=== PATIENT | female | born 1940 | race Caucasian/White ===

== ENCOUNTER 2023-08-17 07:50 | Emergency (ER) | payer MEDICARE, SELFPAY ==
[2023-08-17 07:55] VITALS: BP 110/60; PULSE 60; O2SAT 94
[2023-08-17 08:05] VITALS: BP 144/81; PULSE 67; RESP 18; TEMP 37.1; O2SAT 98; BMI 25.7
[2023-08-17 08:19] VITALS: BP 144/81; PULSE 67; RESP 18; TEMP 37.1; O2SAT 98
--- NOTE | 2023-08-17 08:37 | ED.FALL ---
HPI - Fall General Chief Complaint: Fall Stated Complaint: UNWITT FALL FROM DEMENTIA UNIT PER EMS Time Seen by Provider: 08/17/23 08:13 Source: patient and family Mode of arrival: EMS History of Present Illness HPI Narrative: 82-year-old female, currently on Eliquis for atrial fibrillation, she is on a memory care unit and this is the 2nd fall within a week. Patient states that she was attempting to get up to the bathroom and slid out of bed, she denies any head strike and states that she was reaching for her walker but missed it. Related Data Previous Rx's Medication Instructions Recorded cefdinir 300 mg capsule 300 mg PO BID 5 days #10 caps 08/17/23 Allergies Allergy/AdvReac Type Severity Reaction Status Date / Time amoxicillin [AMOXICILLIN] Allergy Unknown UNKNOWN Unverified 04/29/20 14:43 Review of Systems Review of Systems: Pertinent positives and negatives as stated in HPI [facility] Past Medical History Source: nursing notes reviewed Onset Date is defined in the Problem List Problems that require an onset date and time if occurred within 24 hrs of arrival to the ED Aortic Dissection and Rupture; Neurologic impairment; Cardiopulmonary Arrest; Endotracheal Intubation; Insertion or Replacement of Mechanical Circulatory Assist Device Social History Social History Advance Directives: Yes Advance Directives on File: Yes Advance Directives Date on File: 08/17/23 Physical Exam Vital Signs: Vital Signs: Last Vital Signs Temp 98.7 F 08/17/23 08:19 Pulse 67 08/17/23 08:19 Resp 18 08/17/23 08:19 BP 144/81 H 08/17/23 08:19 Pulse Ox 98 08/17/23 08:19 O2 Del Method Room Air 08/17/23 08:19 BMI result Body Mass Index 25.7 VITAL SIGNS: Reviewed. GENERAL: Well developed, well nourished, in no acute distress. HEAD: Normocephalic/atraumatic, EYES: PERRLA, EOMI EARS: Ext canals without abnormality NOSE: Nares patent bilateral OROPHARYNX: no oral lesions noted, posterior pharynx clear NECK: C-collar in place, no midline cervical spine tenderness to palpation or step-offs. LUNGS: Normal breath sounds. No adventitious sounds or accessory muscle use. SpO2<98> CARDIOVASCULAR: Regular rate and rhythm without noted murmurs ABDOMEN: Soft, non-tender, non-distended with bowel sounds. PELVIS: Stable, nontender MUSCULOSKELETAL: No tenderness, deformities, or effusions noted on gross inspection. EXTREMITIES: No cyanosis, clubbing or edema. SKIN: Inspection of the skin reveals no rashes NEUROLOGIC: Alert and oriented x 2. Strength and sensation to light touch were grossly intact x 4. Medical Decision Making Medical Decision Making [facility] Narrative: 82-year-old female with history and clinical presentation consistent with fall on Eliquis, will evaluate for cardiac arrhythmia or urinary tract infection given 2nd fall within a week. I reviewed all investigations and CT scan of the head does not demonstrate any intracranial hemorrhage or mass effect, cervical spine does not demonstrate any fracture or subluxation and C-collar was removed. EKG only consistent with known atrial fibrillation that is rate controlled but on evaluation of urinalysis patient is noted to have urinary tract infection and will be discharged back to the memory care unit with a prescription for antibiotics. Differential Diagnosis Differential Diagnoses: The differential diagnosis associated with the presentation includes Please see the discussion above Admission/Observation Please see the discussion above Lab Data [facility] Lab Attestation statement: I reviewed the patient's lab results. Please see the discussion above Labs: Lab Results 08/17/23 Range/Units 10:36 Urine Color Yellow Urine Appearance Clear Urine pH 6.5 (5.0-9.0) Ur Specific T[place] 1.015 (1.005-1.025) Urine Protein Negative (Neg-Trace) mg/dL Urine Glucose (UA) Negative (Negative) mg/dL Urine Ketones Negative (Negative) mg/dL Urine Blood Negative (Negative) Urine Nitrite Negative (Negative) Ur Leukocyte Esterase Moderate (2+) H (Negative) Urine RBC 0-2 (0-2) /HPF Urine WBC 21-50 H (0-5) /HPF Ur Squamous Epith Cells 0-2 (0-2) /HPF Urine Bacteria None Seen (None Seen) Hyaline Casts 0-2 (0-2) /LPF Independent Interpretation I performed an independent interpretation of an: EKG Interpretation: Rate controlled atrial fibrillation, HR-70, no STEMI, QRS/QTC is within normal limits. Radiology Impression Discussion of test interpretation with radiology: I have reviewed the radiologist's reading. Radiologist Impression: Please see the discussion above External Record Review External record reviewed: Outpatient record, Prior outpatient labs and Prior outpatient radiology Chronic Conditions Patient?s care impacted by: Other Dementia, atrial fibrillation, chronic anticoagulation Critical Care Time Critical Care Time Critical Care Time: Yes Total Critical Care Time: 45 Attestation: I personally attest to this time spent taking care of the patient. Discharge Plan Discharge Clinical Impression: Fall, Chronic anticoagulation, Acute UTI Patient Disposition: Xfer Other Instructions: Fall Prevention for Older Adults (ED), Fall Prevention (ED), Urinary Tract Infection in Older Adults (ED) Additional Instructions: 1. Resume all home medications as prescribed 2. Complete the entire course of antibiotics as prescribed. 3. Please follow-up with your primary care doctor in the next 1-2 days. Primary care doctor needs to follow-up on the urine culture to ensure appropriate coverage by the antibiotic. Return to the ER for any worsening symptoms. Prescriptions: New cefdinir 300 mg capsule 300 mg PO BID 5 Days Qty: 10 0RF Referrals: Hilary Reyes MD [Primary Care Provider] -
--- NOTE | 2023-08-17 10:01 | PC.NURSE ---
patient ambulated to bathroom with 1 assist and walker.
== END 2023-08-17 12:47 | disposition other institution (70) ==
PROVIDERS: Emergency Provider Student in an Organized Health Care Education/Training Program; PCP Internal Medicine
DX: S09.90XA Unspecified injury of head, initial encounter (principal); S13.4XXA Sprain of ligaments of cervical spine, initial encounter; N39.0 Urinary tract infection, site not specified; R51.9 Headache, unspecified; M54.2 Cervicalgia; W01.0XXA Fall on same level from slipping, tripping and stumbling without subsequent striking against object, initial encounter; Y93.9 Activity, unspecified; Y92.9 Unspecified place or not applicable; Y99.9 Unspecified external cause status; Z79.01 Long term (current) use of anticoagulants; Z79.899 Other long term (current) drug therapy
CPT/HCPCS: 51701; 70450; 72125; 81001; 87086; 93005; 99284

== ENCOUNTER → 2023-08-17 08:05 | Outpatient (BNV) | payer MEDICARE, SELFPAY | PROVIDERS: Emergency Provider Student in an Organized Health Care Education/Training Program; PCP Internal Medicine; Visit Provider Internal Medicine Cardiovascular Disease | DX: I48.91 Unspecified atrial fibrillation (principal) | CPT/HCPCS: 93010 ==

== ENCOUNTER 2023-08-21 16:17 | Emergency (ER) | payer MEDICARE, SELFPAY ==
--- NOTE | 2023-08-21 | ECG_ITS ---
Test Reason : DVT Blood Pressure : / mmHG Vent. Rate : 072 BPM Atrial Rate : 000 BPM P-R Int : 000 ms QRS Dur : 072 ms QT Int : 380 ms P-R-T Axes : 000 -33 015 degrees QTc Int : 416 ms Atrial fibrillation with a competing junctional pacemaker Left axis deviation Inferior infarct (cited on or before 17-AUG-2023) Anterior infarct (cited on or before 17-AUG-2023) Abnormal ECG When compared with ECG of 17-AUG-2023 08:14, No significant change was found Referred By: Amna Veloz Electronically Signed By:PATSY BLANCO MD
--- NOTE | ~2023-08-21 | US_ITS ---
EXAMINATION: US VENOUS ULTRASOUND WITH DOPPLER LOWER EXTREMITY, BILATERAL CLINICAL INFORMATION: Bilateral leg edema. COMPARISON: None available. TECHNIQUE: Ultrasound of the deep veins is performed from the hip to the calf with compression sonography and color and pulse Doppler assessment. Spectral analysis with color-flow imaging is performed. FINDINGS: RIGHT: There is normal venous compression and respiratory variation and augmented flow. The visualized common femoral vein, superficial femoral vein, profunda femoral vein, popliteal vein, and the trifurcation region shows no evidence of deep venous thrombosis. Peroneal vein is not visualized There is no significant popliteal fossa cyst. There is mild calf edema LEFT: There is normal venous compression and respiratory variation and augmented flow. The visualized common femoral vein, superficial femoral vein, profunda femoral vein, popliteal vein, and the trifurcation region shows no evidence of deep venous thrombosis. Peroneal vein is not visualized There is no significant popliteal fossa cyst. There is mild calf edema If the patient's symptoms persist, followup ultrasound in 5 days 7 days might be of value to exclude proximal propagation from a non-visualized calf vein. US/US venous duplex LE BI IMPRESSION: No DVT demonstrated in bilateral lower extremity. Mild bilateral calf edema.
[2023-08-21 17:10] VITALS: BP 130/80; BP 134/82; PULSE 90; RESP 18; TEMP 36.8; O2SAT 97; O2SAT 99; BMI 23.6
[2023-08-21 17:17] VITALS: BP 147/81; PULSE 78; RESP 16; TEMP 36.5; O2SAT 97
[2023-08-21 17:32] LABS: MANUAL DIFF FLAG NO
[2023-08-21 17:33] LABS: Basophils Absolute Auto 0.1 X10*3/uL (0.0-0.2); Basophils Percent Auto 0.7 % (0-2); Eosinophils Absolute Auto 0.5 X10*3/uL (0.0-0.4); Eosinophils Percent Auto 7.4 % (0-4); Hematocrit 33.8 % (37.0-47.0); Hemoglobin 10.7 g/dl (12.0-16.0); Imm Gran Abs Auto 0.02 X10*3/uL (0.00-0.03); Imm Gran Pct Auto 0.3 % (0.0-0.4); Lymphocytes Absolute Auto 1.7 X10*3/uL (1.2-4.9); Lymphocytes Percent Auto 24.3 % (20-40); Mean Corpuscular HGB Conc 31.7 g/dl (31.0-35.0); Mean Corpuscular Hemoglobin 33.2 pg (27.0-33.0); Mean Platelet Volume 8.4 fL (9.4-12.3); Monocytes Absolute Auto 0.8 X10*3/uL (0.1-1.2); Monocytes Percent Auto 12.4 % (2-11); Neutrophils Absolute Auto 3.7 x10*3/uL (2.0-8.3); Neutrophils Percent Auto 54.9 % (45-73); Platelet Count 313 X10*3/uL (160-400); Red Blood Count 3.22 X10*6/uL (4.20-5.50); Red Cell Distribution Width 13.2 % (11.0-16.0); White Blood Count 6.8 X10*3/uL (4.8-10.8)
[2023-08-21 17:44] LABS: D Dimer High Sensitivity 371 NG/ML
[2023-08-21 17:46] LABS: Alanine Aminotransferase 12 U/L (0-31); Albumin Level 3.6 g/dL (3.5-5.0); Alkaline Phosphatase 98 U/L (39-117); Anion Gap 10 (12-20); Aspartate Amino Transferase 15 U/L (5-31); Bilirubin Total 0.3 mg/dL (0.0-1.0); Blood Urea Nitrogen 24 mg/dL (9-16); Calcium 10.6 mg/dL (8.4-10.2); Carbon Dioxide 30 mmol/L (22-29); Chloride 103 mmol/L (96-108); Creatinine Clr Calc Pharmacy 40.6; Estimated Glomerular Filt Rate 52; Glucose Random 90 mg/dL (60-115); Sodium 139 mmol/L (135-145)
[2023-08-21 17:53] LABS: Troponin-I High Sensitivity 7.7 ng/L (<3.5-17.0)
[2023-08-21 18:00] VITALS: BP 146/79; PULSE 71; RESP 18; O2SAT 98
[2023-08-21 18:29] LABS: INTERNATIONAL NORM RATIO 1.1 (0.9-1.1); Prothrombin Time 12.8 SEC (11.1-13.3)
[2023-08-21 18:32] LABS: Partial Thromboplastin Time 31.5 SEC (26.0-36.4)
[2023-08-21 18:48] LABS: B Type Natriuretic Peptide 108 pg/mL (<100)
--- NOTE | 2023-08-21 18:48 | ED_ITS ---
HPI - Extremity Problem General Chief complaint: Extremity Problem Stated complaint: LOWER LEG SWELLING Time Seen by Provider: 08/21/23 17:39 Source: patient and family Mode of arrival: EMS History of Present Illness HPI Narrative: This is an 83-year-old female currently on Coumadin for history of a DVT in the left leg and now presents with increased swelling in both lower extremities. Otherwise, patient denies any shortness of breath or chest pain / palpitations and denies any GI or symptoms. Related Data Previous Rx's Medication Instructions Recorded cefdinir 300 mg capsule 300 mg PO BID 5 days #10 caps 08/17/23 Allergies Allergy/AdvReac Type Severity Reaction Status Date / Time amoxicillin [AMOXICILLIN] Allergy Unknown UNKNOWN Unverified 04/29/20 14:43 Review of Systems 2 Review of Systems: Pertinent positives and negatives as stated in HPI [facility] Past Medical History Source: nursing notes reviewed Onset Date is defined in the Problem List Problems that require an onset date and time if occurred within 24 hrs of arrival to the ED Aortic Dissection and Rupture; Neurologic impairment; Cardiopulmonary Arrest; Endotracheal Intubation; Insertion or Replacement of Mechanical Circulatory Assist Device Social History Social History Alcohol intake: former Smoked in Last 30 Days: No Use of substances other than those prescribed or required for medical reasons: No Advance Directives: Yes Advance Directives on File: Yes Advance Directives Date on File: 08/17/23 Physical Exam 2 Vital Signs: Vital Signs: Last Vital Signs Temp 97.8 F 08/21/23 20:40 Pulse 73 08/21/23 20:40 Resp 23 H 08/21/23 20:40 BP 142/82 H 08/21/23 20:40 Pulse Ox 96 08/21/23 20:40 O2 Del Method Room Air 08/21/23 20:40 BMI result Body Mass Index 23.2 VITAL SIGNS: Reviewed. GENERAL:chronically ill, well nourished, in no acute distress. HEAD: Normocephalic/atraumatic EYES: PERRLA, EOMI EARS: Ext canals without abnormality NOSE: Nares patent bilateral OROPHARYNX: no oral lesions noted, posterior pharynx clear NECK: Supple, no adenopathy LUNGS: Normal breath sounds. No adventitious sounds or accessory muscle use. SpO2<98> CARDIOVASCULAR: Regular rate and rhythm without noted murmurs, no JVD 2+ bilateral lower extremity pitting edema ABDOMEN: Soft, non-tender, non-distended with bowel sounds. MUSCULOSKELETAL: No tenderness, deformities, or effusions noted on gross inspection. EXTREMITIES: No cyanosis, clubbing or edema. SKIN: Inspection of the skin reveals no rashes NEUROLOGIC: Alert and oriented x 4. Strength and sensation to light touch were grossly intact x 4. Medications Administered Discontinued Medications Generic Name Dose Route Start Last Admin Trade Name [place] PRN Reason Stop Dose Admin Furosemide 20 mg 08/21/23 18:54 08/21/23 20:39 Furosemide 20 Mg Tablet PO 08/21/23 18:55 20 mg ONCE ONE Administration Protocol Medical Decision Making Medical Decision Making [facility] Narrative: 83-year-old female with history and clinical presentation, DDX: CHF, low clinical suspicion for DVT given current use of Coumadin but will evaluate INR for therapeutic range Age-Adjusted D-dimer: 425, therefore VTE unlikely. I reviewed all investigations and hematologic indices are negative for leukocytosis or left shift, there is no thrombocytopenia and patient has a macrocytic anemia without clinical or history complaints of acute bleeding. We have no prior records on this patient. Coagulation studies demonstrate a subtherapeutic INR despite patient being on Coumadin and discuss this extensively with the family members were bedside, patient will receive 1 make per kilos Lovenox injection here in the emergency room as initiation of bridging therapy, patient will go home and take her prescribed Coumadin and the daughter will be contacting patient's primary care doctor 1st thing in the morning. Venous duplex is negative for evidence of DVT. Chemistry indices do not demonstrate an KENNETH and there are no electrolyte or liver enzyme derangements. BNP-108 and patient received 20 mg of Lasix orally. EKG demonstrates known atrial fibrillation. Differential Diagnosis Differential Diagnoses: The differential diagnosis associated with the presentation includes please see the discussion above Admission/Observation Consideration of admission/observation: Escalation of care including admission/observation considered please see the discussion above Lab Data [facility] Lab Attestation statement: I reviewed the patient's lab results. Please see the discussion above 08/21/23 17:26 08/21/23 17:26 Labs: Lab Results 08/21/23 Range/Units 17:26 WBC 6.8 (4.8-10.8) X10*3/uL RBC 3.22 L (4.20-5.50) X10*6/uL Hgb 10.7 L (12.0-16.0) g/dl Hct 33.8 L (37.0-47.0) % MCV 105.0 H (80.0-98.0) fL MCH 33.2 H (27.0-33.0) pg MCHC 31.7 (31.0-35.0) g/dl RDW 13.2 (11.0-16.0) % Plt Count 313 (160-400) X10*3/uL MPV 8.4 L (9.4-12.3) fL Immature Gran % (Auto) 0.3 (0.0-0.4) % Neut % (Auto) 54.9 (45-73) % Lymph % (Auto) 24.3 (20-40) % [place] % (Auto) 12.4 H (2-11) % Eos % (Auto) 7.4 H (0-4) % Baso % (Auto) 0.7 (0-2) % Lymph # (Auto) 1.7 (1.2-4.9) X10*3/uL [place] # (Auto) 0.8 (0.1-1.2) X10*3/uL Eos # (Auto) 0.5 H (0.0-0.4) X10*3/uL Baso # (Auto) 0.1 (0.0-0.2) X10*3/uL Abs Immat Gran (auto) 0.02 (0.00-0.03) X10*3/uL Absolute Neuts (auto) 3.7 (2.0-8.3) x10*3/uL Absolute Nucleated RBC 0.000 (0.0-0.012) X10*3/uL Nucleated RBC % (auto) 0.0 (0.0-0.2) /100WBC PT 12.8 (11.1-13.3) SEC INR 1.1 (0.9-1.1) APTT 31.5 (26.0-36.4) SEC D-Dimer High Sensitivty 371 NG/ML Sodium 139 (135-145) mmol/L Potassium 4.0 (3.3-5.1) mmol/L Chloride 103 (96-108) mmol/L Carbon Dioxide 30 H (22-29) mmol/L Anion Gap 10 L (12-20) BUN 24 H (9-16) mg/dL Creatinine 1.02 (0.5-1.4) mg/dL Estim Creat Clear Calc 40.6 Estimated GFR 52 Random Glucose 90 (60-115) mg/dL Calcium 10.6 H (8.4-10.2) mg/dL Total Bilirubin 0.3 (0.0-1.0) mg/dL AST 15 (5-31) U/L ALT 12 (0-31) U/L Alkaline Phosphatase 98 (39-117) U/L Troponin I High Sens 7.7 (<3.5-17.0) ng/L B-Natriuretic Peptide 108 H (<100) pg/mL Total Protein 7.0 (6.5-8.0) g/dL Albumin 3.6 (3.5-5.0) g/dL Independent Interpretation I performed an independent interpretation of an: EKG Interpretation: atrial fibrillation, HR- 72, QRS/QTC is within normal limits. External Record Review External record reviewed: Prior outpatient radiology Chronic Conditions Patient?s care impacted by: Other Atrial fibrillation, chronic anticoagulation. Critical Care Time Critical Care Time Critical Care Time: Yes Total Critical Care Time: 45 Attestation: I personally attest to this time spent taking care of the patient. Discharge Plan Discharge Clinical Impression: Subtherapeutic international normalized ratio (INR), Atrial fibrillation, CHF (congestive heart failure) Patient Disposition: Xfer Other Instructions: Heart Failure (ED), A-fib (Atrial Fibrillation) (ED) Additional Instructions: 1. Resume all home medications as prescribed. 2. Is very important to get the primary care doctor to continue bridging Lovenox injections and tell INR is therapeutic level. Also discussed the possible initiation of diuretics. Return to the ER for any worsening symptoms. Prescriptions: No Action cefdinir 300 mg capsule 300 mg PO BID 5 Days Qty: 10 0RF Referrals: Hilary Reyes MD [Primary Care Provider] -
[2023-08-21] MEDS: Furosemide 20 MG TABLET PO (20:39)
[2023-08-21 20:40] VITALS: BP 142/82; PULSE 73; RESP 23; TEMP 36.6; O2SAT 96
[2023-08-21 21:01] VITALS: BMI 23.2
[2023-08-21] MEDS: Enoxaparin Sodium 80 MG/0.8 ML SYRINGE 70 MG SUBCUT (21:26)
== END 2023-08-22 01:08 | disposition home or self-care (01) ==
PROVIDERS: Emergency Provider Student in an Organized Health Care Education/Training Program; PCP Internal Medicine
DX: R60.0 Localized edema (principal); I48.91 Unspecified atrial fibrillation; I50.9 Heart failure, unspecified; R06.02 Shortness of breath; Z86.718 Personal history of other venous thrombosis and embolism; Z79.01 Long term (current) use of anticoagulants; Z79.899 Other long term (current) drug therapy
CPT/HCPCS: 36415; 80053; 83880; 84484; 85025; 85379; 85610; 85730; 93005; 93970; 96372; 99284; J1650

== ENCOUNTER → 2023-08-21 18:08 | Outpatient (BNV) | payer MEDICARE, SELFPAY | PROVIDERS: Emergency Provider Student in an Organized Health Care Education/Training Program; PCP Internal Medicine; Visit Provider Internal Medicine Cardiovascular Disease | DX: R60.0 Localized edema (principal) | CPT/HCPCS: 93010 ==